=== PATIENT | female | born 1975 | race Caucasian/White ===

== ENCOUNTER 2017-02-01 14:58 | Inpatient (IN) | payer MEDICAID ==
[~2017-02-01] VITALS: Ht 154.9 cm; Wt 69.4 kg
[2017-02-01 17:33] LABS: BASOPHIL % 0.1 % (0-2); PLATELET COUNT 344 x10^3mcL (130-400)
[2017-02-01 17:41] LABS: CALCIUM 8.9 mg/dL (8.5-10.1); CARBON DIOXIDE 27.2 mmol/L (21-32); CHLORIDE SERUM 103 mmol/L (98-107); CREATININE SERUM 0.8 mg/dL (0.6-1.0); GFR1 > 60 mL/min; GLUCOSE SERUM 107 mg/dL (74-106); POTASSIUM SERUM 3.4 mmol/L (3.5-5.1); SODIUM SERUM 137 mmol/L (136-145)
[2017-02-01 17:42] LABS: RED CELL DISTRIBUTION WIDTH 15.7 % (11.5-14.5)
[2017-02-01 17:46] LABS: ALBUMIN 4.3 g/dL (3.4-5.0); ALKALINE PHOSPHATASE 80 U/L (46-116); ALT/SGPT 52 U/L (14-59); AMYLASE 36 U/L (25-115); AST/SGOT 72 U/L (15-37); BILIRUBIN TOTAL 0.3 mg/dL (0.20-1.00); LIPASE 117 IU/L (73-393); TOTAL PROTEIN, SERUM 7.8 g/dL (6.4-8.2)
[2017-02-01 19:23] LABS: MAGNESIUM 1.7 mg/dL (1.8-2.4); PHOSPHOROUS 2.9 mg/dL (2.5-4.9)
[2017-02-01 19:32] LABS: T3 TOTAL 0.96 ng/mL
[2017-02-01 19:33] LABS: FREE T4 1.1 ng/dL (0.76-1.46); FREE THYROXINE INDEX 3.4 ug/dL (1.4-4.5)
[2017-02-01 22:04] VITALS: BP 102/62
[2017-02-02 06:13] LABS: PLATELET COUNT 289 x10^3mcL (130-400)
[2017-02-02 06:18] LABS: CALCIUM 8.4 mg/dL (8.5-10.1); CARBON DIOXIDE 24.7 mmol/L (21-32); CHLORIDE SERUM 104 mmol/L (98-107); CREATININE SERUM 0.7 mg/dL (0.6-1.0); GFR1 > 60 mL/min; GLUCOSE SERUM 141 mg/dL (74-106); POTASSIUM SERUM 4.4 mmol/L (3.5-5.1); SODIUM SERUM 136 mmol/L (136-145)
[2017-02-02 06:33] LABS: CHOLESTEROL/HDL RATIO 2.5
[2017-02-02 06:45] LABS: BASOPHIL % 0 % (0-2); RED CELL DISTRIBUTION WIDTH 16.3 % (11.5-14.5)
[2017-02-02 06:57] LABS: microscopic required? NO
[2017-02-02 07:58] LABS: urine erythrocyte NEGATIVE (NEGATIVE)
[2017-02-02 08:27] LABS: AMPHETAMINE QUAL UR NONE DETECTED (NEG <=1000)
[2017-02-02 08:57] VITALS: BP 97/53
[2017-02-02 12:57] VITALS: BP 100/63
[2017-02-02 16:34] VITALS: BP 111/67
[2017-02-02 20:59] VITALS: BP 92/52
[2017-02-03 05:27] VITALS: BP 97/55
[2017-02-03 06:53] LABS: CARBON DIOXIDE 24.9 mmol/L (21-32); CHLORIDE SERUM 109 mmol/L (98-107); CREATININE SERUM 0.8 mg/dL (0.6-1.0); GFR1 > 60 mL/min; GLUCOSE SERUM 100 mg/dL (74-106); POTASSIUM SERUM 4.2 mmol/L (3.5-5.1); SODIUM SERUM 141 mmol/L (136-145)
[2017-02-03 07:28] LABS: BASOPHIL % 0.5 % (0-2); PLATELET COUNT 261 x10^3mcL (130-400)
[2017-02-03 07:30] LABS: RED CELL DISTRIBUTION WIDTH 16.1 % (11.5-14.5)
[2017-02-03 09:11] VITALS: BP 116/64
[2017-02-03] MEDS ORDERED: LAXATIVE5 M1 PO (12:35)
[2017-02-03] MEDS ORDERED: APAP/HYDROCODON1 T13 PO (12:36)
[2017-02-03 13:26] VITALS: BP 102/65
== END 2017-02-03 14:32 | disposition home or self-care (01) | DRG 952 ==
LOC: ED 14:58 → DU 18:16
PROVIDERS: Emergency Medicine; Surgery; ADMIT Family Medicine
PROC: 0DTJ4ZZ Resection of Appendix, Percutaneous Endoscopic Approach (ICD-10-PCS; principal; 2017-02-01 20:00)
DX: K85.90 Acute pancreatitis without necrosis or infection, unspecified (principal); E83.42 Hypomagnesemia; E87.6 Hypokalemia; R74.0 Nonspecific elevation of levels of transaminase and lactic acid dehydrogenase [LDH]
CPT/HCPCS: 83880; 84439; 94150; C9113; G0480; J0330; J0690; J1885; J1956; J2175; J2250; J2270; J2405; J2704; J3010; J3490; J7030; J7120; Q0092

== ENCOUNTER 2017-02-13 19:59 | Emergency (ER) | payer MEDICAID ==
[~2017-02-13 19:59] MED LIST: APAP/HYDROCODON1 T13 PO; LAXATIVE5 M1 PO
[2017-02-13 21:06] LABS: BASOPHIL % 0.1 % (0-2); PLATELET COUNT 361 x10^3mcL (130-400)
[2017-02-13 21:10] LABS: RED CELL DISTRIBUTION WIDTH 15.6 % (11.5-14.5)
[2017-02-13 21:16] LABS: CALCIUM 8.7 mg/dL (8.5-10.1); CARBON DIOXIDE 22.2 mmol/L (21-32); CHLORIDE SERUM 108 mmol/L (98-107); CREATININE SERUM 0.8 mg/dL (0.6-1.0); GFR1 > 60 mL/min; GLUCOSE SERUM 88 mg/dL (74-106); SODIUM SERUM 143 mmol/L (136-145)
[2017-02-13 21:29] LABS: ALBUMIN 3.7 g/dL (3.4-5.0); ALKALINE PHOSPHATASE 86 U/L (46-116); ALT/SGPT 38 U/L (14-59); AST/SGOT 19 U/L (15-37); BILIRUBIN TOTAL 0.32 mg/dL (0.20-1.00); TOTAL PROTEIN, SERUM 7.6 g/dL (6.4-8.2)
[2017-02-13 21:33] LABS: UA SPECIFIC GRAVITY <=1.005 (1.005-1.035); microscopic required? YES; urine erythrocyte NEGATIVE (NEGATIVE)
[2017-02-13 21:34] LABS: CK-MB < 0.5 ng/mL (0-3.6); CREATINE KINASE 73 U/L (26-192)
[2017-02-14 00:27] VITALS: BP 155/75
== END 2017-02-14 00:43 | disposition home or self-care (01) ==
LOC: ED 19:59
PROVIDERS: Emergency Medicine
DX: R10.30 Lower abdominal pain, unspecified (principal); I88.9 Nonspecific lymphadenitis, unspecified; Z79.1 Long term (current) use of non-steroidal anti-inflammatories (NSAID); Z90.89 Acquired absence of other organs
CPT/HCPCS: 83880; J1170; J2270; J2405; J2550; Q9967

== ENCOUNTER 2019-11-16 15:36 | Emergency (ER) | payer MEDICAID ==
[~2019-11-16] VITALS: Ht 152.4 cm; Wt 70.3 kg
[2019-11-16 15:47] VITALS: Ht 152.4 cm; Wt 70.3 kg
[2019-11-16 17:21] VITALS: BP 110/70
== END 2019-11-16 17:21 | disposition home or self-care (01) ==
LOC: ED 15:36
DX: L60.0 Ingrowing nail (principal)
CPT/HCPCS: J2001

== ENCOUNTER 2020-03-25 17:09 | Emergency (ER) | payer MEDICAID ==
[~2020-03-25] VITALS: Ht 154.9 cm; Wt 71.7 kg
[2020-03-25 17:35] VITALS: BP 129/77; Ht 154.9 cm; Wt 71.7 kg
== END 2020-03-25 20:33 | disposition home or self-care (01) ==
LOC: ED 17:09
DX: L60.0 Ingrowing nail (principal)
CPT/HCPCS: J2001